=== PATIENT | female | born 1925 | race Caucasian/White ===

== ENCOUNTER → 2016-03-08 | Outpatient (CLI) | payer MEDICARE, BC ==
[~2016-03-08] MED LIST: ALEN70 PO; AMBI10TA PO; AMLO10 PO; ASPI325T PO; ATAC16TA4 PO; CLOP75 PO; FLUO10TA PO; GLIM2TAB PO; LEVO125T48 PO; OYST500T71 PO; PRAV80TA PO; SITA100 PO; TAB-TAB PO
[2016-03-08 12:41] LABS: HEMATOCRIT 40.5 % (35.0-46.0); MEAN CELL VOLUME 86.9 FL (80.0-100.0); MEAN CORPUSCULAR HEMOGLOBIN 29.4 PG (27.0-34.0); MEAN CORPUSCULAR HGB CONC 33.8 % (32.0-36.0); PLATELET COUNT 180 TH/MM3 (150-450); RED BLOOD COUNT 4.66 MIL/MM3 (4.00-5.30); RED CELL DISTRIBUTION WIDTH 12.9 % (11.6-17.2); REVIEW FLAG FINAL; WHITE BLOOD COUNT 8.1 TH/MM3 (4.0-11.0)
[2016-03-08 13:12] LABS: ALKALINE PHOSPHATASE 53 U/L (45-117); ALT (GPT) 39 U/L (10-53); ANION GAP 7 MEQ/L (5-15); AST (GOT) 24 U/L (15-37); BICARBONATE 26.6 MEQ/L (21.0-32.0); BLOOD UREA NITROGEN 32 MG/DL (7-18); CHLORIDE 106 MEQ/L (98-107); GLOMERULAR FILTRATION RATE 47 ML/MIN (>89); GLUCOSE,FASTING 172 MG/DL (74-99); HDL CHOLESTEROL 58.8 MG/DL (40.0-60.0); LDL CHOLESTEROL 80 MG/DL (0-99); LDL CHOLESTEROL DIRECT 94 MG/DL (0-99); SODIUM (NA) 140 MEQ/L (136-145); TOTAL BILIRUBIN ADULT 0.5 MG/DL (0.2-1.0)
== END ==
LOC: PLAB 09:28
PROVIDERS: ATTEND Internal Medicine
DX: I10 Essential (primary) hypertension (principal); E78.5 Hyperlipidemia, unspecified
CPT/HCPCS: 36415; 80053; 80061; 83721; 85027